=== PATIENT | female | born 1955 | race Two or more races ===

== ENCOUNTER 2018-03-04 04:39 | Inpatient (IN) | payer BC ==
[~2018-03-04] VITALS: Ht 167.6 cm; Wt 88.5 kg
[~2018-03-04 04:39] MED LIST: CHOL50006 PO; MENT3.5O TP; SIMV10TA6 PO
--- NOTE | 2018-03-04 05:01 | NUR ---
MARCELLE DHALIWAL AT BEDSIDE FOR MSE.
[2018-03-04 05:48] LABS: *BILIRUBIN,URIN NEGATIVE (NEGATIVE); *BLOOD, URINE Trace-intact (NEGATIVE); *CLARITY,URINE CLEAR (CLEAR); *COLOR,URINE YELLOW (YELLOW); *KETONES,URINE NEGATIVE (NEGATIVE); *PROTEIN,URINE NEGATIVE (NEGATIVE); *UROBILINOGEN,URINE 0.2 E.U./dl (NORMAL); LEUKOCYTE ESTERASE ,URINE 2+ (NEGATIVE); NITRITE, URINE NEGATIVE (NEGATIVE); PH,URINE 7.5 (5.0-8.0); UGLUCOSE NEGATIVE (NEGATIVE)
[2018-03-04 05:51] LABS: BACTERIA,URINE FEW /HPF (NONE SEEN); SQUAMOUS EPITHELIAL CELL,UR FEW /HPF (NONE SEEN)
--- NOTE | 2018-03-04 06:17 | NUR ---
PT TAKEN TO RADIOLOGY FOR CT SCAN.
--- NOTE | 2018-03-04 06:25 | NUR ---
PT BACK IN UNIT FROM RADIOLOGY.
[2018-03-04] MEDS ORDERED: PIPERACILLIN/TAZOBACTAM/D5W 50 ML IV ONE (07:10)
[2018-03-04] MEDS ORDERED: IV NORMAL SALINE 1000 ML BAG IV ONE (07:15)
[2018-03-04] MEDS ORDERED: PIPERACILLIN SODIUM/TAZOBACTAM 3.375 G in IV DEXTROSE 5% 50 ML IV ONE (07:15)
--- NOTE | 2018-03-04 07:20 | NUR ---
SHIFT REPORT GIVEN TO ELSA KEATING.
[2018-03-04 07:33] LABS: BASOPHILS # (AUTO) 0.1 K/uL (0.0-8.0); BASOPHILS % (AUTO) 1.1 % (0.0-2.0); EOSINOPHILS # (AUTO) 0.3 K/uL (0.0-0.7); HEMATOCRIT 43.7 % (31.2-41.9); LYMPHOCYTES # (AUTO) 1.5 K/uL (20.0-40.0); LYMPHOCYTES % (AUTO) 17.1 % (20.5-51.5); MEAN CORPUSCULAR HEMOGLOBIN 33.9 uug (24.7-32.8); MEAN CORPUSCULAR HGB CONC 34 g/dL (32.3-35.6); MEAN CORPUSCULAR VOLUME 98.6 fL (75.5-95.3); MONOCYTES # (AUTO) 0.5 K/uL (2.0-10.0); MONOCYTES % (AUTO) 5.6 % (0.0-11.0); NEUTROPHILS # (AUTO) 6.5 K/uL (1.8-8.9); NEUTROPHILS % (AUTO) 73.2 % (38.5-71.5); PLATELET COUNT (AUTO) 225 K/uL (179-408); RED BLOOD CELL COUNT(AUTO) 4.43 MIL/uL (3.63-4.92); WHITE BLOOD COUNT (AUTO) 8.8 K/uL (3.8-11.8)
[2018-03-04 07:40] LABS: CREATININE 0.7 mg/dL (0.6-1.3)
[2018-03-04 07:45] LABS: BILIRUBIN,DIRECT 0.2 mg/dL (0.0-0.2); BILIRUBIN,TOTAL 0.8 mg/dL (0.2-1.0); TOTAL PROTEIN, SERUM 7.7 g/dL (6.4-8.2)
--- NOTE | 2018-03-04 07:53 | NUR ---
DR. VARGAS ADMITTED THE PT. TRANSFER TO FLOOR PENDING ON ROOM/RN AVAILABILITY.
--- NOTE | 2018-03-04 09:02 | NUR ---
TRNASFERED PT TO FLOOR IN STABLE CONDITION.
--- NOTE | 2018-03-04 09:05 | NUR ---
ADMITTED FROM HOME VIA ER A 62 YO FEMALE WITH ADMITTING DX OF DIVERTICULITIS, AWAKE ALERT AND ORIENTED X3 DENIES SOB BUT C/O BEARABLE ABDOMINAL PAIN, DR Jose STAHL MADE AWARE OF ADMISSION
[2018-03-04 09:21] VITALS: BP 94/37
[2018-03-04] MEDS ORDERED: MORPHINE SULFATE 2 MG/1 ML DISP.SYRIN IV PRN (10:30)
--- NOTE | 2018-03-04 10:33 | NUR ---
SEEN BY DR ALICIA STAHL SEE ORDERS
[2018-03-04 11:00] VITALS: BP 103/59
[2018-03-04] MEDS: LEVOFLOXACIN 750MG/D5W 750 MG in PREMIXED 1 EACH IV SCH (11:24)
[2018-03-04] MEDS: METRONIDAZOLE 500 MG/NS 100ML 500 MG in PREMIXED 1 EACH IV SCH ×2 (11:35→22:22)
[2018-03-04] MEDS: ENOXAPARIN SODIUM 40 MG/0.4 ML DISP.SYRIN SQ SCH (11:35)
[2018-03-04] MEDS: IV D5/ 0.9% NACL 1,000 ML IV PRN (11:38)
[2018-03-04] MEDS: ONDANSETRON 4 MG/2 ML VIAL IV PRN (13:06)
[2018-03-04 15:00] VITALS: BP 103/34
--- NOTE | 2018-03-04 16:04 | NUR ---
PATIENT CONTINUE TO C/O PAIN WITH N/V PRN MEDS GIVEN WITH GOOD RELIEF. KEPT NPO TILL FURTHER ORDERS.
[2018-03-04 20:25] VITALS: BP 108/44
[2018-03-05] MEDS: IV D5/ 0.9% NACL 1,000 ML IV PRN ×2 (00:05→16:52)
[2018-03-05 05:44] VITALS: BP 123/43
[2018-03-05] MEDS: METRONIDAZOLE 500 MG/NS 100ML 500 MG in PREMIXED 1 EACH IV SCH ×3 (06:11→21:18)
[2018-03-05] MEDS: PANTOPRAZOLE SODIUM 40 MG VIAL IV SCH (06:14)
[2018-03-05 06:36] LABS: BASOPHILS # (AUTO) 0.1 K/uL (0.0-8.0); BASOPHILS % (AUTO) 0.8 % (0.0-2.0); EOSINOPHILS # (AUTO) 0.1 K/uL (0.0-0.7); EOSINOPHILS % (AUTO) 2.1 % (0.0-7.0); HEMATOCRIT 37.9 % (31.2-41.9); HEMOGLOBIN 13.3 g/dL (10.9-14.3); LYMPHOCYTES # (AUTO) 1.4 K/uL (20.0-40.0); LYMPHOCYTES % (AUTO) 20.8 % (20.5-51.5); MEAN CORPUSCULAR HEMOGLOBIN 34.6 uug (24.7-32.8); MEAN CORPUSCULAR HGB CONC 35 g/dL (32.3-35.6); MEAN CORPUSCULAR VOLUME 98.5 fL (75.5-95.3); MONOCYTES # (AUTO) 0.5 K/uL (2.0-10.0); MONOCYTES % (AUTO) 7.4 % (0.0-11.0); NEUTROPHILS # (AUTO) 4.6 K/uL (1.8-8.9); NEUTROPHILS % (AUTO) 68.9 % (38.5-71.5); PLATELET COUNT (AUTO) 183 K/uL (179-408); RED BLOOD CELL COUNT(AUTO) 3.85 MIL/uL (3.63-4.92); WHITE BLOOD COUNT (AUTO) 6.6 K/uL (3.8-11.8)
--- NOTE | 2018-03-05 06:49 | NUR ---
Stable condition. No s/s of acute distress at this time. Pt made aware of plan of care. Safe environment implemented.
[2018-03-05 07:03] LABS: CREATININE 0.7 mg/dL (0.6-1.3); PHOSPHOROUS 2.5 mg/dL (2.5-4.9); POTASSIUM 3.7 mmol/L (3.5-5.1)
[2018-03-05 07:06] LABS: THYROID STIMULATING HORMONE 1.905 mIU/mL (0.358-3.740)
--- NOTE | 2018-03-05 08:00 | NUR ---
AWAKE COOPERATE WELL NO PAIN OR SOB CONTINUE IVF AND KEEP NPO CALL LIGHT IN REACH
[2018-03-05] MEDS: LEVOFLOXACIN 750MG/D5W 750 MG in PREMIXED 1 EACH IV SCH (09:02)
[2018-03-05] MEDS: ENOXAPARIN SODIUM 40 MG/0.4 ML DISP.SYRIN SQ SCH (09:04)
[2018-03-05 11:22] VITALS: BP 105/46
--- NOTE | 2018-03-05 12:00 | NUR ---
DR STAHL SEE PATIENT AND ORDER OK TO HAVE DIET ADA REGULAR
[2018-03-05 15:15] VITALS: BP 120/54
--- NOTE | 2018-03-05 16:00 | NUR ---
IV INFILTRATE ON RT HAND WILL RESTART ANOTHER ONE AFTER DINNER
--- NOTE | 2018-03-05 17:00 | NUR ---
START CLEAR LIQ DIET FELIPE MOD AMT NO N/V AND ENC TO OOB UP AMBULATE IN THE [address] DOING WELL
--- NOTE | 2018-03-05 18:00 | NUR ---
STABLE HEMODYNAMIC STATUS ,NO ABD PAIN OR N/V SAFETY MEASURE PROVIDED CALL LIGHT IN REACH
[2018-03-05 19:54] VITALS: BP 109/42
--- NOTE | 2018-03-05 20:04 | NUR ---
Pt observed to be AAO x 3, in no acute distress. No s/s of acute distress noted at this time. Safe environment implemented.
[2018-03-06 05:17] VITALS: BP 117/48
[2018-03-06] MEDS: IV D5/ 0.9% NACL 1,000 ML IV PRN (05:39)
[2018-03-06] MEDS: METRONIDAZOLE 500 MG/NS 100ML 500 MG in PREMIXED 1 EACH IV SCH ×2 (05:39→14:06)
--- NOTE | 2018-03-06 05:54 | NUR ---
Stable condition. Pt slept intermittently throughout the night. Denies pain and discomfort at this time. Safe environment implemented.
[2018-03-06] MEDS: PANTOPRAZOLE SODIUM 40 MG VIAL IV SCH (07:17)
[2018-03-06] MEDS: ENOXAPARIN SODIUM 40 MG/0.4 ML DISP.SYRIN SQ SCH (08:18)
[2018-03-06] MEDS: LEVOFLOXACIN 750MG/D5W 750 MG in PREMIXED 1 EACH IV SCH (08:18)
[2018-03-06] MEDS: ONDANSETRON 4 MG/2 ML VIAL IV PRN (10:38)
[2018-03-06] MEDS ORDERED: LEVO750T21 PO (10:58)
[2018-03-06] MEDS ORDERED: METR500T PO (10:58)
[2018-03-06 11:06] VITALS: BP 125/65
--- NOTE | 2018-03-06 15:41 | NUR ---
Patient seen per her request upon discharge. Instructed her on a diverticulitis diet and printed materials were provided. Demonstrated good understanding as evidenced by appropriate questions. Adherence anticipated. Addendum: 03/06/18 at [address] Amended: Links added.
--- NOTE | 2018-03-06 17:00 | NUR ---
PATIENT HAS BEEN DISCHARGED. PATIENT IN STABLE CONDITION AND NO SIGNS/SYMPTOMS OF DISTRESS. PATIENT DENIES ANY PAIN OR DISCOMFORT. PATIENTS IV AND IV BAN REMOVED PRIOR TO LEAVING FACILITY. PATIENT DISCHARGED WITH EXIT CARE PACKAGE, VALUABLES AND BELONGINGS. PATIENT HAS A FOLLOW UP APPOINT WITH PRIVATE PCP ON Saturday03/10/2018. PATIENT WAS DRIVEN HOME BY FRIEND IN PRIVATE CAR. PATIENT RECEIVED MEDICAL RECORDS OF RADIOLOGY RESULTS. PATIENT UNDERSTANDS DISCHARGE AND AGREES TO TAKE ALL MEDICATIONS PRESCRIBED BY MD AND WILL FOLLOW UP WITH PCP. PATIENT WAS VISITED BY DIETARY AND RECEIVED EDUCATIONAL DIET REGARDING DISEASE PROCESS OF DIVERTICULOSIS.
[2018-03-06 17:49] VITALS: BP 125/65
== END 2018-03-06 16:45 | disposition home or self-care (01) | DRG 392 ==
LOC: ER 04:40 → MED 08:58
DX: K57.32 Diverticulitis of large intestine without perforation or abscess without bleeding (principal); N39.0 Urinary tract infection, site not specified; K83.8 Other specified diseases of biliary tract; E78.5 Hyperlipidemia, unspecified; B96.20 Unspecified Escherichia coli [E. coli] as the cause of diseases classified elsewhere; B95.2 Enterococcus as the cause of diseases classified elsewhere; Z16.11 Resistance to penicillins; Z16.29 Resistance to other single specified antibiotic; Z90.49 Acquired absence of other specified parts of digestive tract; I10 Essential (primary) hypertension; K44.9 Diaphragmatic hernia without obstruction or gangrene; I70.0 Atherosclerosis of aorta; K76.0 Fatty (change of) liver, not elsewhere classified
CPT/HCPCS: 36415; 83605; 83735; 84100; 84443; 85025; 85730; 87040; 87077; 87086; A4663; C9113; G0378; J1650; J1956; J2270; J2405; J2543; J3490; J7030; J7042; J7050; J7070